=== PATIENT | male | born 1990 | race African-American/Black ===

== ENCOUNTER 2021-10-21 16:11 | Emergency (ER) | payer OTHER ==
[~2021-10-21] VITALS: Ht 175.3 cm; Wt 68.0 kg
[2021-10-21 16:16] VITALS: BP 119/72
[2021-10-21 16:30] VITALS: BP 123/74
[2021-10-21 16:48] VITALS: BP 131/84
[2021-10-21 16:55] LABS: HEMATOCRIT 38.8 % (39.0-50.0); HEMOGLOBIN 12.5 g/dl (14.0-18.0); IMMATURE GRANULOCYTES 0.2 % (0.0-5.0); MEAN CELL VOLUME 93.7 fL CALC (80.0-100.0); MEAN CORPUSCULAR HGB 30.2 pG CALC (26.0-32.0); MEAN CORPUSCULAR HGB CONC 32.2 g/dL CAL (32.0-36.0); NEUT# 2.51 thou/uL (1.82-7.42); RED BLOOD COUNT 4.14 mill/uL (4.70-6.10); RED CELL DISTRI WIDTH 13.7 % (11.5-15.5)
[2021-10-21 16:56] LABS: URINE BILIRUBIN - DIPSTICK NEGATIVE (NEGATIVE); URINE BLOOD DIPSTICK NEGATIVE (NEGATIVE); URINE COLOR YELLOW; URINE GLUCOSE - DIPSTICK NEGATIVE (NEGATIVE); URINE KETONE NEGATIVE (NEGATIVE); URINE LEUK ESTERASE NEGATIVE (NEGATIVE); URINE PROTEIN - DIPSTICK NEGATIVE (NEG-TRACE); URINE SPECIFIC GRAVITY 1.025; URINE UROBILINOGEN - DIPSTICK 0.2 E.U./dL (0.2)
[2021-10-21 17:00] VITALS: BP 121/66
[2021-10-21 17:01] LABS: URINE NITRITE - DIPSTICK NEGATIVE (Negative)
[2021-10-21 17:33] LABS: ALKALINE PHOSPHATASE 59 u/l (38-126); ANION GAP 10 (6-22 (CALC)); BILIRUBIN, TOTAL 0.5 mg/dL (0.0-1.4); BUN 14 mg/dL (9-20); BUN/CREATININE RATIO 13 (12-20 (CALC)); CARBON DIOXIDE 28 mmol/l (22-30); CHLORIDE 103 mmol/l (95-108); ETHYL ALCOHOL 0 mg/dl (0-30); GFR FOR AFR.AMER. > 60 ML/MIN (>=60 (CALC)); GFR OTHER RACES > 60 ML/MIN (>=60 (CALC)); MAGNESIUM 2.1 mg/dL (1.6-2.3); POTASSIUM 4.5 mmol/l (3.5-5.1); SGOT/AST 37 u/l (17-59); SODIUM 137 mmol/l (137-146); TOTAL PROTEIN 7.2 g/dL (6.3-8.2)
[2021-10-21 18:56] VITALS: BP 97/62
== END 2021-10-21 19:21 | DRG 880 ==
LOC: ED 16:11
PROVIDERS: Emergency Medicine
DX: F41.9 Anxiety disorder, unspecified (principal); R94.31 Abnormal electrocardiogram [ECG] [EKG]

== ENCOUNTER 2022-01-20 12:09 | Emergency (ER) | payer OTHER ==
[~2022-01-20] VITALS: Ht 175.3 cm; Wt 70.4 kg
[2022-01-20 12:21] VITALS: BP 108/75
[2022-01-20 12:30] VITALS: BP 109/78
[2022-01-20 13:00] VITALS: BP 123/95
[2022-01-20 13:30] VITALS: BP 120/83
[2022-01-20] MEDS ORDERED: NAPROXEN500 MG PO (13:36)
[2022-01-20 13:49] VITALS: BP 120/83
== END 2022-01-20 14:03 | disposition home or self-care (01) | DRG 563 ==
LOC: ED 12:09
PROC: 2W3QX1Z Immobilization of Right Lower Leg using Splint (ICD-10-PCS; principal; 2022-01-20)
DX: S82.841A Displaced bimalleolar fracture of right lower leg, initial encounter for closed fracture (principal); X50.0XXA Overexertion from strenuous movement or load, initial encounter; Y93.61 Activity, american tackle football; Y92.149 Unspecified place in prison as the place of occurrence of the external cause